=== PATIENT | female | born 1990 | race Two or more races ===

== ENCOUNTER 2017-06-22 11:36 | Emergency (ER) | payer MEDICAID ==
[~2017-06-22] VITALS: Ht 160 cm; Wt 74.4 kg
[2017-06-22 11:50] VITALS: BP 130/77; Ht 160 cm; Wt 74.4 kg
== END 2017-06-22 13:15 | disposition home or self-care (01) ==
LOC: ED 11:36
DX: Z53.21 Procedure and treatment not carried out due to patient leaving prior to being seen by health care provider (principal)

== ENCOUNTER 2018-04-09 13:13 | Emergency (ER) | payer SELFPAY ==
[~2018-04-09] VITALS: Ht 160 cm; Wt 69.2 kg
[2018-04-09 13:34] VITALS: Ht 160 cm; Wt 69.2 kg
[2018-04-09 16:44] VITALS: BP 126/88
== END 2018-04-09 16:44 | disposition home or self-care (01) ==
LOC: ED 13:13
DX: H66.92 Otitis media, unspecified, left ear (principal); J32.9 Chronic sinusitis, unspecified

== ENCOUNTER 2019-10-04 13:35 | Emergency (ER) | payer OTHER, SELFPAY ==
[~2019-10-04] VITALS: Ht 167.6 cm; Wt 78.5 kg
[2019-10-04 15:22] VITALS: Ht 167.6 cm; Wt 78.5 kg
[2019-10-04 16:37] LABS: BASOPHIL % 0.4 % (0-2); PLATELET COUNT 227 x10^3mcL (130-400); RED CELL DISTRIBUTION WIDTH 14.5 % (11.5-14.5)
[2019-10-04 16:47] LABS: CALCIUM 8.4 mg/dL (8.5-10.1); CARBON DIOXIDE 27.3 mmol/L (21-32); CHLORIDE SERUM 103 mmol/L (98-107); CREATININE SERUM 0.7 mg/dL (0.6-1.0); GFR1 > 60 mL/min; GLUCOSE SERUM 87 mg/dL (74-106); POTASSIUM SERUM 3.9 mmol/L (3.5-5.1); SODIUM SERUM 137 mmol/L (136-145)
[2019-10-04 16:52] LABS: ALKALINE PHOSPHATASE 75 U/L (46-116); ALT/SGPT 42 U/L (14-59); AST/SGOT 27 U/L (15-37); BILIRUBIN TOTAL 0.26 mg/dL (0.20-1.00); TOTAL PROTEIN, SERUM 7.6 g/dL (6.4-8.2)
[2019-10-04 19:24] VITALS: BP 119/81
== END 2019-10-04 19:24 | disposition home or self-care (01) ==
LOC: ED 13:35
PROVIDERS: Emergency Medicine
DX: U07.1 COVID-19 (principal); R55 Syncope and collapse; J45.909 Unspecified asthma, uncomplicated; Z86.2 Personal history of diseases of the blood and blood-forming organs and certain disorders involving the immune mechanism
CPT/HCPCS: Q0092; U0003-CS